=== PATIENT | female | born 1940 | race Caucasian/White ===

== ENCOUNTER 2018-03-26 14:00 | Inpatient (IN) ==
[2018-03-26 17:13] LABS: Appearance,Urine CLEAR; Bilirubin,Urine NEG (NEG); Color,Urine YELLOW; Glucose,Urine (UA) NEGATIVE (NEG); Leukocyte Esterase,Urine NEG /uL (NEG); Protein,Urine NEG (NEG); Specific Gravity,Urine 1.027 (1.000-1.035); Urine Blood NEG mg/dL (<0.03); Urobilinogen,Urine NEG (NEG)
[2018-03-26 18:53] LABS: Blood Urea Nitrogen 16 mg/dl (8-23)
[2018-03-26 20:35] LABS: Basophils # (Auto) 0 K/mcL (0.0-0.3); Basophils % (Auto) 0 % (0.0-2.0); Eosinophils # (Auto) 0.1 K/mcL (0.0-0.7); Granulocytes % (Auto) 77.1 % (38.0-78.0); Lymphocytes # (Auto) 0.9 K/mcL (1.5-4.8); Mean Cell Volume 75.2 fL (80.0-100.0); Mean Corpuscular HGB Conc 31.5 g/dL (31.0-36.0); Mean Corpuscular Hemoglobin 23.6 pg (26.0-34.0); Monocytes # (Auto) 0.4 K/mcL (0.1-0.9); Monocytes % (Auto) 6.9 % (1.0-12.0); Platelet Count 310 K/mcL (140-440); RBC 4.26 M/mcL (4.00-5.20); Red Cell Distribution Width 19.2 % (11.5-14.5)
[2018-04-01] MEDS ORDERED: PREGABALIN 75 MG CAPSULE PO SCH (06:00)
[2018-04-01] MEDS ORDERED: oxyCODONE 10 MG TAB.ER.12H PO SCH (06:00)
[2018-04-01] MEDS ORDERED: ceFAZolin 1 GM VIAL IV SCH (06:00)
[2018-04-01] MEDS ORDERED: CELECOXIB 200 MG CAPSULE PO SCH (06:00)
[2018-04-01] MEDS ORDERED: ACETAMINOPHEN 500 MG TABLET PO SCH (06:00)
[2018-04-01] MEDS ORDERED: METOPROLOL TARTRATE 5 MG/5 ML VIAL IV ONE (13:22)
[2018-04-01] MEDS ORDERED: hydrALAZINE 20 MG/ML VIAL IV ONE (13:22)
[2018-04-01] MEDS ORDERED: ONDANSETRON 4 MG/2 ML VIAL IV ONE (13:22)
[2018-04-01] MEDS ORDERED: KETAMINE 100 MG/ML ML IV ONE (13:22)
[2018-04-01] MEDS ORDERED: MIDAZOLAM 5 MG/5 ML VIAL IV ONE (13:22)
[2018-04-01] MEDS ORDERED: ROPIVACAINE HCL/PF 30 ML VIAL IJ ONE (13:22)
[2018-04-01] MEDS ORDERED: fentaNYL 250 MCG/5 ML VIAL IV ONE (13:22)
[2018-04-01] MEDS ORDERED: TRANEXAMIC ACID 1,000 MG/10 ML VIAL IV ONE ×2 (13:22→14:34)
[2018-04-01] MEDS ORDERED: PROPOFOL 200 MG/20 ML VIAL IV ONE (13:22)
[2018-04-01] MEDS ORDERED: DEXAMETHASONE 10 MG/ML VIAL IV ONE (13:22)
[2018-04-01] MEDS ORDERED: LIDOCAINE HCL/PF 100 MG/5 ML SYRINGE IV ONE (13:22)
[2018-04-01] MEDS ORDERED: FLUMAZENIL 0.1 MG/ML ML IV PRN (14:09)
[2018-04-01] MEDS ORDERED: ATROPINE SULFATE 0.4 MG/ML VIAL IV PRN (14:09)
[2018-04-01] MEDS ORDERED: ONDANSETRON 4 MG/2 ML VIAL IV PRN ×2 (14:09→14:34)
[2018-04-01] MEDS ORDERED: PROMETHAZINE 25 MG/ML VIAL IV PRN (14:09)
[2018-04-01] MEDS ORDERED: NALOXONE HCL 0.4 MG/ML VIAL IV PRN (14:09)
[2018-04-01] MEDS ORDERED: IPRATROPIUM/ALBUTEROL 3 ML AMPUL.NEB NEB PRN (14:09)
[2018-04-01] MEDS ORDERED: METHOCARBAMOL 1,000 MG/10 ML VIAL IV PRN (14:09)
[2018-04-01] MEDS ORDERED: METOPROLOL TARTRATE 5 MG/5 ML VIAL IV PRN (14:09)
[2018-04-01] MEDS ORDERED: HYDROmorphone 2 MG/ML VIAL IV PRN ×2 (14:09→14:34)
[2018-04-01] MEDS ORDERED: diphenhydrAMINE 50 MG/ML VIAL IV PRN (14:09)
[2018-04-01] MEDS ORDERED: ePHEDrine 50 MG/ML AMPUL IV PRN (14:09)
[2018-04-01] MEDS ORDERED: LACTATED RINGERS 1,000 ML IV SCH (14:15)
[2018-04-01] MEDS ORDERED: GENTAMICIN SULFATE 800 MG/20 ML VIAL IR ONE (14:31)
[2018-04-01] MEDS ORDERED: KETOROLAC 15 MG/ML VIAL IV PRN (14:34)
[2018-04-01] MEDS ORDERED: ACETAMINOPHEN 325 MG TABLET PO PRN (14:34)
[2018-04-01] MEDS ORDERED: BENZOCAINE/MENTHOL 1 LOZENGE PO PRN (14:34)
[2018-04-01] MEDS ORDERED: TEMAZEPAM 15 MG CAPSULE PO PRN (14:34)
[2018-04-01] MEDS ORDERED: MAGNESIUM HYDROXIDE 30 ML ORAL.SUSP PO PRN (14:34)
[2018-04-01] MEDS ORDERED: BISACODYL 10 MG SUPP.RECT PR PRN (14:34)
[2018-04-01] MEDS ORDERED: POLYETHYLENE GLYCOL 3350 17 GM PACKET PO PRN (14:34)
[2018-04-01] MEDS ORDERED: FLEETS ADULT ENEMA PR PRN (14:34)
[2018-04-01] MEDS ORDERED: NYSTATIN POWDER BOTTLE 15GM TOPICAL PRN (14:38)
[2018-04-01] MEDS ORDERED: ACETAMINOPHEN 650 MG PO PRN (14:38)
[2018-04-01] MEDS ORDERED: LOPERAMIDE 2 MG CAPSULE PO PRN (14:38)
--- NOTE | 2018-04-01 14:43 | Brief Operative Note ---
Date of procedure: 04/01/18 Pre-op diagnosis: left shoulder rca and bicep tendonosis Post-op diagnosis: same Procedure: Left shoulder reverse tsa and bicep tenodesis Grafts/Implants: Yes Anesthesia: GETA Complications: none Surgeon: Jv Zamora Steam Hammer Operator: Eliud Tavares Estimated blood loss (cc): 150 Tourniquet Time (Minutes): 0 Specimens Removed/Pathology: none sent Condition: stable Disposition: PACU
--- NOTE | 2018-04-01 15:05 | Operative Note ---
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 PROCEDURE: Left reverse total shoulder and biceps tenodesis. SURGEON: Jv Zamora MD INDUSTRIAL MAINTENANCE MILLWRIGHT: Eliud Tavares PA-C ANESTHESIA: General LMA anesthesia. COMPLICATIONS: None. IMPLANTS: Casimiro reverse total shoulder with a size 11 stem, a 6 mm poly, a 36 mm glenosphere, standard metaglene with 4 screws as per nurse's note. Antibiotic cement was used to assist in fixation of the distal portion of the stem. DESCRIPTION OF PROCEDURE: The patient was brought to the operating room and put to sleep with general anesthesia. Once asleep, the patient had the left shoulder sterilely prepped and draped in the usual sterile fashion. Once this was done, we then confirmed as the operative site. A deltopectoral approach was performed and Ioban was placed over the skin. We exposed the deltopectoral interval, retracted this laterally, released the subscap and dislocated the humeral head. The neck cut was made just under the articular surface of the head. A protective plate was applied and then the head was subluxed posteriorly. A 360-degree capsular release was performed and removal of the biceps tendon and release from intraarticularly. Once done, we then placed a pin centrally and then reamed to punctate bleeding type bone. The metaglene was placed. We placed a 28 mm central screw and then three screws around the circumference of this the metaglene, a 24, 32, and a 32 mm locking screws. A 36 mm glenosphere was then placed with 2 mm of offset. This was placed and then we prepared the humerus. The humerus was then broached up to the size 11 stem. We trialed the standard poly; this was too thin with about 3 mm of play. We then placed a 6 mm poly. This gave us 1 mm on the shuck test and the shoulder had full range of motion. We irrigated thoroughly and implanted the size 11 stem with antibiotic impregnated cement distally with porous ingrowth proximally. We then placed a +6 poly. This was tapped into place. This was then reduced. We reduced the shoulder and then repaired the anterior capsule with #1 FiberWire and the biceps tendon was repaired in the bicipital groove and to the major with #1 suture FiberWire. We irrigated thoroughly. We then closed the interval with 2-0 Vicryl and closed the skin with 2-0 Vicryl and adhesive closure. The patient tolerated this well. A DonJoy sling was fitted and given to the patient, and a standard bandage. RBH:bettie Job ID: [id number] Doc ID: [id number] Jv Zamora MD
[2018-04-01] MEDS: fentaNYL 100 MCG/2 ML VIAL IV PRN ×2 (15:27→15:31)
--- NOTE | 2018-04-01 15:28 | XRay Report ---
CLINICAL INFORMATION: Postsurgical follow-up TECHNIQUE: Portable AP and Y view COMPARISON: None. FINDINGS: Status post left reverse shoulder arthroplasty. Alignment appears anatomic on these 2 projections. There is mild soft tissue and intra-articular gas. There are skin kurt overlying the left shoulder IMPRESSION: Status post left reverse shoulder arthroplasty Interpreted and Authenticated by: Gonzalo Harvey 04/01/18
[2018-04-01] MEDS: IPRATROPIUM 0.03% NASAL SPRAY BOTTLE 30ML NAS SCH ×2 (15:48→21:30)
[2018-04-01] MEDS: HYDROcodone/APAP 10/325MG TABLET PO PRN ×2 (17:16→22:08)
[2018-04-01] MEDS: 0.45 % SODIUM CHLORIDE 1,000 ML IV SCH (18:05)
[2018-04-01] MEDS ORDERED: DOCUSATE SODIUM 100 MG CAPSULE PO SCH (21:00)
[2018-04-01] MEDS: SENNOSIDES 1 TABLET PO SCH (21:29)
[2018-04-01] MEDS: MONTELUKAST 10 MG TABLET PO SCH (21:29)
[2018-04-01] MEDS: ceFAZolin 1 GM VIAL IV SCH (21:29)
[2018-04-01] MEDS: rOPINIRole 0.25 MG TABLET PO SCH (21:29)
[2018-04-01] MEDS: DOCUSATE SODIUM 100 MG CAPSULE PO SCH (21:30)
[2018-04-01] MEDS: LATANOPROST OPHTH DROPS 2.5ML BOTTLE OU SCH (21:31)
[2018-04-01] MEDS: 0.9 % SODIUM CHLORIDE 10 ML SYRINGE IV SCH (21:40)
[2018-04-02] MEDS: 0.45 % SODIUM CHLORIDE 1,000 ML IV SCH (01:00)
[2018-04-02] MEDS: DIAZEPAM 5 MG TABLET PO PRN (01:17)
[2018-04-02] MEDS: HYDROcodone/APAP 10/325MG TABLET PO PRN ×6 (01:20→19:41)
[2018-04-02] MEDS: ceFAZolin 1 GM VIAL IV SCH (04:00)
[2018-04-02] MEDS: 0.9 % SODIUM CHLORIDE 10 ML SYRINGE IV SCH ×3 (04:14→20:40)
[2018-04-02] MEDS: LEVOTHYROXINE 75 MCG TABLET PO SCH (07:01)
[2018-04-02] MEDS: IRON POLYSACCHARIDE COMPLEX 150 MG CAPSULE PO SCH (07:01)
--- NOTE | 2018-04-02 07:50 | Orthopedic Progress Note ---
Subjective Patient information: Note initiated : 04/02/18 at 7:49 am Service Date, if different from initiated Date: [] Patient: Harriet Pérez 78 y/o F admitted on 04/01/18 for Left Reverse Total Shoulder Arthroplasty, Bicep . Chief Complaint: [Pt is stable this morning on post operative day 1 without any significant concerns or complaints. Patients vital signs have remained stable. Patients dressing is dry and is grossly intact from a neurovascular and motor standpoint. Patients 10 point ROS is otherwise negative. ] Objective Vital signs: Vital Signs Temp Pulse Resp BP BP Pulse Ox 04/02/18 03:48 97.7 F 72 18 116/59 95 04/02/18 00:00 98.5 F 84 18 102/52 93 04/01/18 20:00 97.7 F 86 20 105/53 95 04/01/18 16:48 143/71 99 04/01/18 16:33 139/71 96 04/01/18 16:18 137/63 97 04/01/18 16:03 141/63 94 04/01/18 15:48 97.4 F 134/63 95 04/01/18 15:35 97.8 F 83 12 134/54 96 04/01/18 15:25 97.9 F 81 15 132/55 96 04/01/18 15:15 97.2 F 82 19 128/51 97 04/01/18 15:05 76 14 132/53 100 04/01/18 15:00 84 15 144/57 100 04/01/18 14:55 87 16 146/70 100 04/01/18 14:54 97.0 F 88 16 142/58 100 04/01/18 12:00 97.4 F 16 116/58 100 04/01/18 11:30 24 H Intake and Output 04/01/18 04/02/18 04/02/18 21:59 05:59 13:59 Intake Total 1400 / 1400 1220 / 1220 Output Total 250 / 250 0 / 0 Balance 1150 / 1150 1220 / 1220 Intake: IV 1000 / 1000 Sodium Chloride 0.45% 1,000 ml 1000 / 1000 @ 100 mls/hr IV .Q10H KEEGAN Rx#: [id number] Oral 220 / 220 IV - Manual Only 1400 / 1400 Output: Void Amount 0 / 0 Estimated Blood Loss 250 / 250 Other: Meal Dinner Percent of Meal Consumed 100% # Voids 1 1 Weight 161 lb 4.8 oz Intake & Output: Intake & Output 04/01/18 04/02/18 04/02/18 21:59 05:59 13:59 Intake Total 1400 / 1400 1220 / 1220 Output Total 250 / 250 0 / 0 Balance 1150 / 1150 1220 / 1220 Weight 161 lb 4.8 oz Intake: IV 1000 / 1000 Sodium Chloride 0.45% 1,000 ml 1000 / 1000 @ 100 mls/hr IV .Q10H KEEGAN Rx#: [id number] Oral 220 / 220 IV - Manual Only 1400 / 1400 Output: Void Amount 0 / 0 Estimated Blood Loss 250 / 250 Other: Meal Dinner Percent of Meal Consumed 100% # Voids 1 1 Incision: Yes healing Incision clean and dry: Yes Dressing: Yes clean Weight bearing status: full Neurological exam IM: Yes motor sensory intact, Yes neurovascular intact Extremities exam IM: Yes Foot pink and warm, Yes neurovascular intact - Labs CBC & BMP: 03/26/18 15:14 03/26/18 15:14 Labs: Orthopedic Labs 03/26/18 15:13 PT 13.5 INR 1.0 03/26/18 15:14 Hgb 10.1 L Hct 32.1 L Assessment and Plan (1) Hx of total shoulder replacement The patient has been educated regarding dressing care, Physical Therapy recommendations, home exercises, restrictions, and follow up appointments. The patient has had all necessary DME prescribed. The patient has remained relatively stable during their hospital course. Status: Acute
--- NOTE | 2018-04-02 07:53 | Discharge Summary ---
Ortho Discharge - TSA - Patient Instructions Diet: Regular Diet Activity: activity as tolerated, weight bearing as tolerated Total Shoulder Protocol: Leave immobilizer in place except for bathing and ROM. Abduction pillow. Continue to wear sling until seen by physician. Codman Pendulum : These exercises use momentum produced by your body to move your shoulder joint. Bend your knees and shift your weight to your front leg, then back, allowing your arm to swing in the same directions. Using the same technique, alternately shift your weight between your right and left legs, allowing your arm to swing from side to side. These exercises are also performed in counterclockwise and clockwise circular motions. Typically these exercises are performed several times per day, for a set number repetitions or minutes, such as 20 times in a row or 5 minutes at a time. Dressing Care: May shower in 3 days, Aquacel Ag - leave on for 5 days - Problem Maintenance (1) Hx of total shoulder replacement Status: Acute - Follow Up Plan Follow Up Appointments: Eliud Tavares PA-C [Physician Microfilm Camera Operator] - 04/16/18 3:40 pm Disposition: Xfer SNF Prognosis: Good Rehab Potential: Good I certify that the patient requires SNF services: Yes Overall status at discharge: patient is progressing back to baseline - Orders For Discharge Prescriptions: Docusate Sodium [Colace] 100 mg PO BID #60 cap HYDROcodone/APAP 10/325MG [Empire 10-325Mg] 1 - 2 tab PO Q4HP PRN #75 tab PRN Reason: Pain Level 3-6 Temazepam [Restoril] 15 mg PO HSP PRN #15 cap PRN Reason: Insomnia
[2018-04-02] MEDS: DOCUSATE SODIUM 100 MG CAPSULE PO SCH ×2 (10:57→20:38)
[2018-04-02] MEDS: LOSARTAN 50 MG TABLET PO SCH (10:57)
[2018-04-02] MEDS: VITAMIN D3 5,000 UNIT CAPSULE PO SCH (10:57)
[2018-04-02] MEDS: cloNIDine HCL 0.1 MG TABLET PO SCH (10:57)
[2018-04-02] MEDS: MULTIVIT,THER IRON,CA,FA & MIN 1 TABLET PO SCH (10:58)
[2018-04-02] MEDS: CITALOPRAM 20 MG TABLET PO SCH (10:58)
[2018-04-02] MEDS: amLODIPine 5 MG TABLET PO SCH (10:58)
[2018-04-02] MEDS: IPRATROPIUM 0.03% NASAL SPRAY BOTTLE 30ML NAS SCH ×3 (10:59→20:38)
[2018-04-02] MEDS: CALCITONIN NASAL SPRAY 3.7ML BOTTLE NS SCH (10:59)
[2018-04-02] MEDS: SENNOSIDES 1 TABLET PO SCH (20:38)
[2018-04-02] MEDS: rOPINIRole 0.25 MG TABLET PO SCH (20:38)
[2018-04-02] MEDS: MONTELUKAST 10 MG TABLET PO SCH (20:39)
[2018-04-02] MEDS: LATANOPROST OPHTH DROPS 2.5ML BOTTLE OU SCH (20:39)
[2018-04-03] MEDS: HYDROcodone/APAP 10/325MG TABLET PO PRN ×5 (00:06→21:01)
[2018-04-03] MEDS: DIAZEPAM 5 MG TABLET PO PRN ×2 (00:17→22:56)
[2018-04-03] MEDS: 0.9 % SODIUM CHLORIDE 10 ML SYRINGE IV SCH ×3 (04:03→21:05)
--- NOTE | 2018-04-03 07:01 | Orthopedic Progress Note ---
Subjective Patient information: Note initiated : 04/03/18 at 6:59 am Service Date, if different from initiated Date: [] Patient: Harriet Pérez 78 y/o F admitted on 04/01/18 for Left Reverse Total Shoulder Arthroplasty, Bicep . Chief Complaint: [Pain and slow to walk and is not co nausea or vomiting] Objective Vital signs: Vital Signs Temp Pulse Resp BP Pulse Ox 04/03/18 03:00 99.0 F 86 16 142/63 95 04/03/18 00:00 98.2 F 80 16 120/55 92 04/02/18 20:00 98.2 F 97 H 16 102/52 94 04/02/18 16:00 98.9 F 78 18 113/52 96 04/02/18 15:00 82 16 04/02/18 12:00 98.9 F 81 18 137/68 94 04/02/18 08:00 98.4 F 84 18 142/66 94 Intake and Output 04/02/18 04/03/18 04/03/18 21:59 05:59 13:59 Intake Total 1490 / 1490 150 / 150 Balance 1490 / 1490 150 / 150 Intake: Oral 1490 / 1490 150 / 150 Other: Meal Lunch Percent of Meal Consumed 75% Feeding Ability Independent # Voids 1 1 Weight 163 lb 4.8 oz Intake & Output: Intake & Output 04/02/18 04/03/18 04/03/18 21:59 05:59 13:59 Intake Total 1490 / 1490 150 / 150 Balance 1490 / 1490 150 / 150 Weight 163 lb 4.8 oz Intake: Oral 1490 / 1490 150 / 150 Other: Meal Lunch Percent of Meal Consumed 75% Feeding Ability Independent # Voids 1 1 Incision: Yes healing Incision clean and dry: Yes Dressing: Yes clean Weight bearing status: full Extremities exam IM: Yes Foot pink and warm, Yes neurovascular intact (dc to home or care center) - Labs CBC & BMP: 03/26/18 15:14 03/26/18 15:14 Labs: Orthopedic Labs 03/26/18 15:13 PT 13.5 INR 1.0 03/26/18 15:14 Hgb 10.1 L Hct 32.1 L
[2018-04-03] MEDS: MULTIVIT,THER IRON,CA,FA & MIN 1 TABLET PO SCH (08:16)
[2018-04-03] MEDS: DOCUSATE SODIUM 100 MG CAPSULE PO SCH ×2 (08:16→20:58)
[2018-04-03] MEDS: CITALOPRAM 20 MG TABLET PO SCH (08:17)
[2018-04-03] MEDS: VITAMIN D3 5,000 UNIT CAPSULE PO SCH (08:17)
[2018-04-03] MEDS: amLODIPine 5 MG TABLET PO SCH (08:17)
[2018-04-03] MEDS: LEVOTHYROXINE 75 MCG TABLET PO SCH (08:17)
[2018-04-03] MEDS: LOSARTAN 50 MG TABLET PO SCH (08:17)
[2018-04-03] MEDS: cloNIDine HCL 0.1 MG TABLET PO SCH (08:17)
[2018-04-03] MEDS: CALCITONIN NASAL SPRAY 3.7ML BOTTLE NS SCH (09:30)
[2018-04-03] MEDS: IPRATROPIUM 0.03% NASAL SPRAY BOTTLE 30ML NAS SCH ×3 (09:31→21:03)
[2018-04-03] MEDS ORDERED: fentaNYL 25 MCG PATCH TOPICAL SCH (10:00)
[2018-04-03] MEDS: SENNOSIDES 1 TABLET PO SCH (20:58)
[2018-04-03] MEDS: MONTELUKAST 10 MG TABLET PO SCH (20:59)
[2018-04-03] MEDS: rOPINIRole 0.25 MG TABLET PO SCH (20:59)
[2018-04-03] MEDS: LATANOPROST OPHTH DROPS 2.5ML BOTTLE OU SCH (21:03)
[2018-04-04] MEDS: HYDROcodone/APAP 10/325MG TABLET PO PRN ×2 (02:17→07:41)
[2018-04-04] MEDS: DIAZEPAM 5 MG TABLET PO PRN (02:23)
[2018-04-04] MEDS: LEVOTHYROXINE 75 MCG TABLET PO SCH (07:26)
[2018-04-04] MEDS: 0.9 % SODIUM CHLORIDE 10 ML SYRINGE IV SCH (07:27)
[2018-04-04] MEDS: LOSARTAN 50 MG TABLET PO SCH (08:18)
[2018-04-04] MEDS: cloNIDine HCL 0.1 MG TABLET PO SCH (08:18)
[2018-04-04] MEDS: CITALOPRAM 20 MG TABLET PO SCH (08:18)
[2018-04-04] MEDS: MULTIVIT,THER IRON,CA,FA & MIN 1 TABLET PO SCH (08:18)
[2018-04-04] MEDS: VITAMIN D3 5,000 UNIT CAPSULE PO SCH (08:19)
[2018-04-04] MEDS: DOCUSATE SODIUM 100 MG CAPSULE PO SCH (08:19)
[2018-04-04] MEDS: amLODIPine 5 MG TABLET PO SCH (08:19)
[2018-04-04] MEDS: CALCITONIN NASAL SPRAY 3.7ML BOTTLE NS SCH (08:26)
[2018-04-04] MEDS: IPRATROPIUM 0.03% NASAL SPRAY BOTTLE 30ML NAS SCH (08:27)
[2018-04-04] MEDS: IRON POLYSACCHARIDE COMPLEX 150 MG CAPSULE PO SCH (08:39)
== END 2018-04-04 10:20 | DRG 483 ==
LOC: MEDSUR 04-01 10:57
PROVIDERS: ADMIT Orthopaedic Surgery; ATTEND Orthopaedic Surgery
CPT/HCPCS: 90686; 97161; C1713; C1776; J0360; J0690; J1100; J1170; J1580; J2001; J2250; J2405; J2795; J3010; J7120